=== PATIENT | male | born 1940 | race Caucasian/White ===

== ENCOUNTER 2016-07-29 16:46 | Emergency (ER) | payer MEDICARE, OTHER ==
[2016-07-29] MEDS ORDERED: UNITHROID PO (16:58)
[2016-07-29] MEDS ORDERED: DICLOFENAC SODI50 M1 PO (16:58)
[2016-07-29] MEDS ORDERED: ASPIR-LOW81 M1 PO (16:59)
[2016-07-29] MEDS ORDERED: BETIMOL5 ML EACH EYE (16:59)
[2016-07-29] MEDS ORDERED: ONE DAILY COMP1 EAC1 PO (16:59)
== END 2016-07-29 17:55 ==
LOC: EDMED 16:46
PROC: 0HQFXZZ Repair Right Hand Skin, External Approach (ICD-10-PCS; principal; 2016-07-29)
DX: S61.210A Laceration without foreign body of right index finger without damage to nail, initial encounter (principal); S60.311A Abrasion of right thumb, initial encounter; W26.8XXA Contact with other sharp object(s), not elsewhere classified, initial encounter; Y92.009 Unspecified place in unspecified non-institutional (private) residence as the place of occurrence of the external cause